=== PATIENT | female | born 1960 | race Caucasian/White ===

== ENCOUNTER 2020-01-05 13:00 | Outpatient (RCR) | payer BC ==
[~2020-01-05 13:00] MED LIST: HYDR-34 PO
== END 2020-03-07 | disposition home or self-care (01) ==
PROVIDERS: ATTEND Family Medicine
DX: I89.0 Lymphedema, not elsewhere classified (principal); Z85.3 Personal history of malignant neoplasm of breast

== ENCOUNTER 2021-04-03 21:31 | Emergency (ER) | payer OTHER, BC ==
[~2021-04-03] VITALS: Ht 165 cm; Wt 58.9 kg
[2021-04-03 22:00] LABS: HEMATOCRIT 39 % (35-52); HEMOGLOBIN 13.3 g/dL (11.5-16.0); MEAN CORPUSCULAR HEMOGLOBIN 31 pg (25-34); MEAN CORPUSCULAR HGB CONC 34 g/dL (32-36); MEAN CORPUSCULAR VOLUME 89 fL (80-99); MEAN PLATELET VOLUME 9.4 fL (9.0-12.2); PLATELET COUNT 207 10^3/uL (130-400); WHITE BLOOD COUNT 5.9 10^3/uL (4.3-11.0)
[2021-04-03 22:10] LABS: ALBUMIN 4.2 GM/DL (3.2-4.5); CHLORIDE 105 MMOL/L (98-107); POTASSIUM 3.6 MMOL/L (3.6-5.0); SODIUM 143 MMOL/L (135-145)
[2021-04-03 22:12] LABS: CALCIUM 9.6 MG/DL (8.5-10.1)
[2021-04-03 22:13] LABS: GLUCOSE 100 MG/DL (70-105); TOTAL PROTEIN 7.5 GM/DL (6.4-8.2)
[2021-04-03 22:14] LABS: BILIRUBIN,URINE NEGATIVE (NEGATIVE); CLARITY,URINE CLEAR; COLOR,URINE YELLOW; GLUCOSE, URINE (UA) NEGATIVE (NEGATIVE); KETONES,URINE NEGATIVE (NEGATIVE); LEUKOCYTE ESTERASE ,URINE NEGATIVE (NEGATIVE); NITRITE,URINE NEGATIVE (NEGATIVE); PROTEIN,URINE NEGATIVE (NEGATIVE)
[2021-04-03 22:14] LABS: CARBON DIOXIDE 24 MMOL/L (21-32)
[2021-04-03 22:15] LABS: BILIRUBIN,TOTAL 0.3 MG/DL (0.1-1.0)
[2021-04-03 22:16] LABS: ALKALINE PHOSPHATASE 66 U/L (40-136)
[2021-04-03 22:17] LABS: CREATININE SERUM 0.88 MG/DL (0.60-1.30); GFR ESTIMATED > 60
[2021-04-03 22:18] LABS: BILIRUBIN,DIRECT 0.1 MG/DL (0.0-0.3); BILIRUBIN,INDIRECT 0.2 MG/DL; BUN/CREATININE RATIO 19
[2021-04-03 22:20] LABS: ALANINE AMINOTRANSFERASE 20 U/L (0-55)
[2021-04-03 22:21] LABS: BACTERIA,URINE NEGATIVE /HPF; SQUAMOUS EPITHELIAL CELL,UR RARE /HPF; WBC,URINE RARE /HPF
[2021-04-03] MEDS ORDERED: HOLD METFORMIN - RECEIVED CONTRAST 20 ML VIAL IV SCH (23:15)
[2021-04-03] MEDS ORDERED: NS 100 ML (IVPB) BAG IV ONE (23:15)
[2021-04-03] MEDS ORDERED: IOHEXOL 350 MG/ML 100 ML (OMNIPAQUE 350) VIAL IV ONE (23:15)
[2021-04-03] MEDS ORDERED: CATHETER FLUSH 10 ML SYR IV PRN (23:15)
[2021-04-03] MEDS ORDERED: KETOROLAC 30 MG/ML VIAL IVP ONE (23:45)
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
[2021-04-04 00:32] VITALS: BP 112/75
--- NOTE | 2021-04-04 06:02 | Diagnostic Imaging Report ---
INDICATION: Right foot pain COMPARISON: None FINDINGS: 3 views of the right foot demonstrate no fracture or dislocation. Articular surfaces are age-appropriate. No foreign body seen. IMPRESSION: No fracture identified Dictated by: Dictated on workstation # [id number]
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
== END 2021-04-04 00:38 | disposition home or self-care (01) ==
LOC: EDUNIT# 21:31 → ER 21:33
DX: S80.12XA Contusion of left lower leg, initial encounter (principal); S90.01XA Contusion of right ankle, initial encounter; S00.33XA Contusion of nose, initial encounter; R07.89 Other chest pain; R91.8 Other nonspecific abnormal finding of lung field; I10 Essential (primary) hypertension; R40.2410 Glasgow coma scale score 13-15, unspecified time; V89.2XXA Person injured in unspecified motor-vehicle accident, traffic, initial encounter
CPT/HCPCS: 71045; 71260; 73590; 73610; 73630; 74177; 80048; 80076; 81000; 84484; 84703; 85027; 93005; 93041; 96374; 99284; G0480; 36415; 80320

== ENCOUNTER → 2021-05-24 | Outpatient (CLI) | payer BC ==
[~2021-05-24] VITALS: Ht 165.1 cm; Wt 60.9 kg
[~2021-05-24] MED LIST changes: +LIDOCAINE 1% INJ 20 ML 20 ML VIAL INJ ONE
--- NOTE | 2021-05-24 12:10 | Diagnostic Imaging Report ---
INDICATION: Left thyroid nodule. PROCEDURE: The patient presents for ultrasound-guided fine needle aspiration and biopsy. The patient was brought to the procedure room and placed on the table in the supine position. Ultrasound imaging of the left neck was performed to evaluate appropriate entry site. Left neck was then prepped and draped in usual sterile fashion. A small amount of 1% lidocaine was utilized for local anesthesia. A total of 4 passes were made into the dominant solid nodule left lobe of the thyroid utilizing 25-gauge needles and fine-needle aspiration technique. A single pass was made with a Rotex needle and Rotex biopsy was performed. The patient tolerated the procedure well and left the department in stable condition. IMPRESSION: Successful ultrasound guided left thyroid nodule fine-needle aspiration and Rotex biopsy. Pathology results are currently pending. Dictated by: Dictated on workstation # [id number]
== END ==
LOC: RAD 09:45
PROVIDERS: ATTEND Otolaryngology Otolaryngology/Facial Plastic Surgery
DX: E04.1 Nontoxic single thyroid nodule (principal)
CPT/HCPCS: 10005

== ENCOUNTER → 2021-11-07 | Outpatient (CLI) | payer BC ==
[~2021-11-07] MED LIST changes: -LIDOCAINE 1% INJ 20 ML 20 ML VIAL INJ ONE
--- NOTE | 2021-11-07 16:41 | Diagnostic Imaging Report ---
PROCEDURE: US thyroid. TECHNIQUE: Multiple real-time grayscale images were obtained of the thyroid in various projections. INDICATION: Thyroid nodules, follow-up. COMPARISON: Correlation is made with prior ultrasound from 04/15/2021. FINDINGS: The right lobe of the thyroid measures 5.4 x 1.4 x 1.7 cm and the left lobe measures 4.3 x 1.9 x 1.8 cm. Right lobe shows fairly homogeneous echotexture. There is a small colloid cyst in the right lobe measuring approximately 5 mm x 3 mm x 4 mm, stable. There is a dominant solid mass in the mid and lower aspect of the left lobe of the thyroid measuring 2.5 x 1.6 x 1.5 cm compared with 2.8 x 1.6 x 1.8 centers on prior. No new thyroid mass is detected. Isthmus is 2 mm in thickness. IMPRESSION: Stable thyroid ultrasound when compared with prior exam from 04/15/2021. Dictated by: Dictated on workstation # [id number]
== END ==
LOC: RAD 11:30
PROVIDERS: ATTEND Otolaryngology Otolaryngology/Facial Plastic Surgery
DX: E04.2 Nontoxic multinodular goiter (principal)
CPT/HCPCS: 76536

== ENCOUNTER → 2022-07-01 | Outpatient (CLI) | payer BC, OTHER ==
--- NOTE | 2022-07-01 20:34 | Diagnostic Imaging Report ---
PROCEDURE: US Thyroid. TECHNIQUE: Multiple real-time grayscale images were obtained of the thyroid in various projections. INDICATION: Thyroid nodule. COMPARISON: 11/07/2021 FINDINGS: Right thyroid lobe is 5.4 x 1.4 x 1.7 cm unchanged from prior. The right lobe contains a tiny hypoechoic to anechoic structure measuring 5 mm long axis identical to prior. The left thyroid lobe is 4.3 x 1.9 x 1.8 cm. It contains a heterogeneous but largely hyperechoic nodule with scattered areas of cystic degeneration. The mass measured 2.5 x 1.6 x 1.5 cm and contains no identifiable calcifications. Unchanged in appearance from prior. IMPRESSION: Stable 2.5 cm left lobe thyroid mass with no new abnormality. Dictated on workstation # [id number]
== END ==
LOC: RAD 12:11
PROVIDERS: ATTEND Otolaryngology Otolaryngology/Facial Plastic Surgery
DX: E04.1 Nontoxic single thyroid nodule (principal)
CPT/HCPCS: 76536